=== PATIENT | female | born 1950 | race Caucasian/White ===

== ENCOUNTER 2016-07-21 10:34 | Outpatient (CLI) | payer MEDICARE, OTHER ==
[~2016-07-21] VITALS: Ht 154.9 cm; Wt 65.9 kg
[~2016-07-21 10:34] MED LIST: ATOR10TA64 PO; ESCI20TA30 PO
[2016-07-21 10:49] VITALS: BP 124/65; PULSE 66; RESP 16; TEMP 97.9; O2SAT 97
[2016-07-21 10:52] VITALS: Ht 154.9 cm; Wt 65.9 kg
[2016-07-21] MEDS ORDERED: DENOSUMAB 60 MG/ML INJECTION SQ ONE (11:00)
== END 2016-07-21 11:05 | disposition home or self-care (01) ==
LOC: INF.THER 10:34
PROVIDERS: ATTEND Family Medicine
DX: M81.0 Age-related osteoporosis without current pathological fracture (principal)
CPT/HCPCS: 96372; J0897